=== PATIENT | male | born 1990 | race Caucasian/White ===

== ENCOUNTER 2019-01-05 20:10 | Emergency (ER) | payer OTHER ==
[2019-01-05 20:16] VITALS: BP 123/77; PULSE 100; TEMP 98.1; BMI 22.9
--- NOTE | 2019-01-05 20:39 | PDOC ---
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 Pt is in [employer] and thus has daily running, jumping, and other physical activities. Pt was running last week and had gradual onset of lateral L knee pain, worse with jumping and running, worse over the past week, nonradiating, causing him to limp a little. Endorses repetitive use; denies trauma, fall, previous injuries, swelling, redness, warmth. Pt tried icey hot and advil with some improvement. Pt denies need for pain medication at this time. Denies F/C, N/V, headache, dizziness, numbness/tingling, weakness, CP, SOB, abdominal pain. Past History - Past Medical History Allergies/Adverse Reactions: Allergies Allergy/AdvReac Type Severity Reaction Status Date / Time No Known Allergies Allergy Verified 01/05/19 20:11 Home Medications: Ambulatory Orders NK [No Known Home Medication] 01/05/19 COPD: No Other medical history: DENIES - Immunization History TDAP Vaccination: Yes (2008) Immunization Up to Date: Yes - Suicide/Smoking/Psychosocial Hx Smoking Status: No Smoking History: Never smoked Have you smoked in the past 12 months: No Number of Cigarettes Smoked Daily: 0 Information on smoking cessation initiated: No Hx Alcohol Use: Yes (SOCIAL) Drug/Substance Use Hx: No Substance Use Type: None Review of Systems - Review of Systems Comments:: 01/05/19 20:52 Constitutional: Negative for chills, fever, fatigue. HENT: Negative for sore throat, rhinorrhea, congestion. Eyes: Negative for visual disturbance. Respiratory: Negative for shortness of breath, cough, and wheezing. Cardiovascular: Negative for chest pain, palpitations, and leg swelling. Gastrointestinal: Negative for abdominal pain, blood in stool, constipation, diarrhea, nausea, and vomiting. Genitourinary: Negative for dysuria, flank pain, and hematuria. Musculoskeletal: Positive for L knee pain. Negative for myalgias, back pain, and neck pain. Skin: Negative for rash. Neurological: Negative for light-headedness, dizziness, syncope, weakness, numbness and headaches. Psychiatric/Behavioral: Negative for behavioral problems and confusion. *Physical Exam - Vital Signs Last Vital Signs Temp Pulse Resp BP Pulse Ox 98.1 F 100 H 15 123/77 97 01/05/19 20:11 01/05/19 20:11 01/05/19 20:11 01/05/19 20:11 01/05/19 20:11 - Physical Exam Comments: 01/05/19 20:53 Gen: Alert, NAD, comfortable-appearing. HEENT: PERRL, EOMI, MMM, NCAT. No conjunctival pallor. Sclera are non-icteric. CV: Regular rate and rhythm. No murmurs, rubs, or gallops. PULM: No resp distress. CTAB, no wheezes, rales, or rhonchi. ABD: soft, NT/ND, no rebound tenderness or guarding. BACK: No TTP of c/t/l-spine. No step-offs or deformities. MSK: No bony deformities. 2+ pulses in all extremities. L knee: +TTP lateral knee. No patellar TTP or crepitus. No soft tissue or brenda deformities. No effusion, ecchymoses, lacerations, erythema, warmth, or fluctuance. Full ROM. Sensation to light touch intact at knee and distally. 5/5 strength in LLE. 2+ pulses. No laxity or pain with MCL testing, LCL testing, anterior drawer test, or posterior drawer test. NEURO: AAOx3. PERRL. No gross CN deficits. Strength and sensation grossly intact throughout. EXTREMITIES: No cyanosis. No clubbing. No edema. No calf tenderness. PSYCH: Normal mood and thought pattern. SKIN: Warm and dry. Normal capillary refill. No rashes. No jaundice. Medical Decision Making - Medical Decision Making 01/05/19 20:48 28yo M no PMH presents from home with atraumatic L knee pain x1 week s/p repetitive use at [employer]. Hemodynamically stable, neurovascularly intact distally to injury, full ROM of L knee, ambulates normally, TTP only at lateral L knee indicative of most likely ITBS or other repetitive use injury. No s/s of fracture or dislocation; imaging not indicated by [place] Knee Scale. No s/s concerning for cellulitis or septic joint. -Limit activity and use NSAIDs for pain -Follow-up with Ortho, Dr Langley -Dispo: d/c home *DC/Admit/Observation/Transfer Diagnosis at time of Disposition: Knee pain, left - Discharge Dispostion Disposition: HOME Condition at time of disposition: Stable Decision to Admit order: No - Referrals Referrals: Renny Langley MD [Staff Physician] - - Patient Instructions Printed Discharge Instructions: DI for Knee Pain Additional Instructions: You have been seen in the Emergency Department for your knee injury. Your exam show no signs concerning for a fracture or dislocation. Your pain is most likely due to a repetitive use injury of a ligament or tendon such as iliotibial band syndrome (runner's knee). If you experience pain, you can take Ibuprofen as directed on the medication bottle, but do not exceed 3g of Ibuprofen a day. Rest and limit activity until cleared by Orthopedics. We have given you a referral for an Orthopedic Surgeon, Dr. Langley. Call the office tomorrow and make a follow-up appointment for this week. Return to the ED immediately if you experience pain not controlled by over the counter medications, inability to walk, numbness/tingling, fever, dizziness, or any other new or worsening symptom. - Post Discharge Activity Forms/Work/School Notes: Back to Work Activity Comments: 01/05/19 20:36 No running or athletic activity involving the left knee until cleared by Orthopedics.
--- NOTE | 2019-01-05 21:44 | PDOC ---
Documentation entered by Karen Barahona SCRIBE, acting as scribe for Porfirio Huynh MD. Porfirio Huynh MD: This documentation has been prepared by the Jun dobson Xhesika, SCRIBE, under my direction and personally reviewed by me in its entirety. I confirm that the documentation accurately reflects all work, treatment, procedures, and medical decision making performed by me. Attending Attestation - Resident Resident Name: DarrylRoopa - ED Attending Attestation I have performed the following: I have examined & evaluated the patient, The case was reviewed & discussed with the resident, I agree w/resident's findings & plan, Exceptions are as noted - HPI HPI: 01/05/19 20:42 The patient is a 28 year old male with no significant past medical history who presents to the ED with 1 weeks of L knee pain. Patient said he is in the [employer], was running and jumping everyday, progressively aggravating the pain. Patient states he has been rubbing icy hot and taking tylenol with no relief of symptoms. Patient is able to walk and did walk into the emergency department. PAST MEDICAL HISTORY: no significant history PAST SURGICAL HISTORY: no significant history FAMILY HISTORY: no pertinant history SOCIAL HISTORY: Pt lives with family and is employed. MEDICATIONS: reviewed ALLERGIES: As per nursing notes - Physicial Exam PE: 01/05/19 20:43 GENERAL: The patient is awake, alert, and fully oriented, in no acute distress. HEAD: Normal with no signs of trauma. EYES: Pupils equal, round and reactive to light, extraocular movements intact, sclera anicteric, conjunctiva clear. EXTREMITIES: (+) Tenderness to palpation of L lateral knee over iliotibial band. Neurovascular distal intact. Normal range of motion, no edema. NEUROLOGICAL: Normal speech, normal gait. PSYCH: Normal mood, normal affect SKIN: Warm, Dry, normal turgor, no rashes or lesions noted. - Medical Decision Making 01/05/19 20:39 This is a 28-year-old male who is at the [employer] and doesn't a lot of running and jumping at the [employer]. Patient is had progressive lateral knee pain 1 week. Patient's been using icy hot on it. Patient had tenderness over palpation of the iliotibial band with no palpable effusion of the knee. Patient given orthopedic referral and discharged home
== END 2019-01-05 20:48 | disposition home or self-care (01) ==
LOC: FER 20:10
DX: M25.562 Pain in left knee (principal)
CPT/HCPCS: 99281-25